=== PATIENT | male | born 1995 | race Caucasian/White ===

== ENCOUNTER 2020-02-27 20:54 | Emergency (ER) | payer SELFPAY ==
--- NOTE | 2020-02-27 21:50 | CT ---
CT BRAIN NONCONTRAST: DATE: 02/27/2020 HISTORY: 24-year-old male status post acute head trauma FINDINGS: There is no evidence of acute intra-axial or extra-axial hemorrhage. There is no midline shift or any other mass effect. There is no extra-axial fluid collection. There is no evidence of obstructive hydrocephalus. Calvarium is intact. There is an acute, displaced nasal bone fracture. There is right supraorbital low frontal scalp laceration and contusion. IMPRESSION: 1. No acute intracranial findings. 2. See separate report of facial bone CT
--- NOTE | 2020-02-27 21:54 | CT ---
CT maxillofacial noncontrast: 02/27/2020 HISTORY: 24-year-old male status post acute facial trauma FINDINGS: Comminuted, mildly displaced nasal bone fractures. Soft tissue swelling of right cheek, right supraorbital frontal scalp where there is laceration and s mall hematoma. There is partial opacification of bilateral anterior ethmoid air cells and anterior portion of nasal cavity, at least some of which represents blood. The sphenoid, maxillary, and frontal sinuses demonstrate no air-fluid levels. The orbits are clear of hematoma, edema, and gas. No other fractures are visualized. IMPRESSION: 1.) Acute, traumatic, comminuted, mildly displaced nasal bone fractures. 2) acute, traumatic, right supraorbital frontal scalp laceration and contusion/hematoma.
--- NOTE | 2020-02-27 21:56 | CT ---
CT CERVICAL SPINE NONCONTRAST: DATE: 02/27/2020 HISTORY: cervical trauma: 24-year-old male status post fall FINDINGS: Alignment is normal. Vertebral body heights are maintained. No prevertebral soft tissue swelling. No perched or jumped facets. No significant degenerative disc disease or significant degenerative facet disease identified. No fracture or any other major osseous abnormality. IMPRESSION: Normal
--- NOTE | 2020-02-27 22:05 | RAD ---
Radiograph right shoulder 3 views: 02/27/2020 9:37 PM HISTORY: 24-year-old male status post acute, traumatic right shoulder pain due to fall FINDINGS: There is displaced and angulated fracture deformity at the junction between the distal and middle thi rds of the right clavicle, of indeterminate age, because of overlap of fracture fragments. No other fracture is visualized. No dislocation of glenohumeral joint. IMPRESSION: Displaced right clavicular shaft fracture of indeterminate age, possibly old. Recommend clinical obinna elation (is there point tenderness in this region?)
[2020-02-27] MEDS ORDERED: Sulfameth/Trimethoprim DS 800-160mg TAB ONE (22:48)
[2020-02-27] MEDS ORDERED: Bacitracin 1 PK ONE (23:00)
== END 2020-02-27 23:25 | disposition home or self-care (01) ==
LOC: ERS 20:54
DX: S02.2XXA Fracture of nasal bones, initial encounter for closed fracture (principal); S02.5XXA Fracture of tooth (traumatic), initial encounter for closed fracture; S01.81XA Laceration without foreign body of other part of head, initial encounter; S40.211A Abrasion of right shoulder, initial encounter; S60.511A Abrasion of right hand, initial encounter; Z23 Encounter for immunization; J45.909 Unspecified asthma, uncomplicated; F17.210 Nicotine dependence, cigarettes, uncomplicated; V29.9XXA Motorcycle rider (driver) (passenger) injured in unspecified traffic accident, initial encounter
CPT/HCPCS: 12013; 70450; 70486; 72125; 90471